=== PATIENT | female | born 1940 | race Caucasian/White ===

== ENCOUNTER 2016-08-25 06:14 | Day surgery (SDC) | payer MEDICARE, OTHER ==
--- NOTE | ~2016-08-25 | EGD ---
EGD REPORT [facility] [address] [address] NAME: SUE ROCA : [birth year] STATUS : [place] [facility] [place] PAT#: [id number] AGE: 76 ADM/REG DATE : 08/25/16 MR#: [id number] REPORT SERV DATE: 08/25/16 DICTATED BY: LENIN PERRY DATE: 08/25/16 REPORT STATUS : Draft TRANSCRIBED BY: [employer] DATE: 08/25/16 [facility] Patient Name: Sue Roca Date of : 1940 Attending MD: LENIN PERRY, Procedure Date No Time: 08/25/2016 Procedure: Colonoscopy Indications: Surveillance: History of piecemeal removal adenoma on last colonoscopy (< 3 yrs) Referring MD: DINAH CHISHOLM MD Medicines: Monitored Anesthesia Care Complications: No immediate complications. Estimated blood loss: None. Procedure: Pre-Anesthesia Assessment: - ASA Grade Assessment: III - A patient with severe systemic disease. After I obtained informed consent, the scope was passed under direct vision. Throughout the procedure, the patient's blood pressure, pulse, and oxygen saturations were monitored continuously. The PCF [id number] was introduced through the anus and advanced to the cecum, identified by appendiceal orifice and ileocecal valve. The colonoscopy was performed without difficulty. The patient tolerated the procedure well. The quality of the bowel preparation was good. Findings: The perianal and digital rectal examinations were normal. A tattoo was seen at the hepatic flexure. The tattoo site appeared normal. Internal hemorrhoids were found during retroflexion and were Grade I (internal hemorrhoids that do not prolapse). The exam was otherwise without abnormality on direct and retroflexion views. Impression: - A tattoo was seen at the hepatic flexure. The tattoo site appeared normal. - Internal hemorrhoids. - The examination was otherwise normal on direct and retroflexion views. Recommendation: - Patient has a contact number available for emergencies. The signs and symptoms of potential delayed complications were discussed with the patient. Return to normal activities tomorrow. Written discharge instructions were provided to the patient. EGD REPORT [address] [address] NAME: SUE ROCA : [birth year] STATUS : [place] [facility] [place] PAT#: [id number] AGE: 76 ADM/REG DATE : 08/25/16 MR#: [id number] REPORT SERV DATE: 08/25/16 DICTATED BY: LENIN PERRY DATE: 08/25/16 REPORT STATUS : Draft TRANSCRIBED BY: [employer] DATE: 08/25/16 - Return to previous diet. - Continue present medications. - Repeat colonoscopy in 5 years for surveillance. Procedure Code(s): --- Professional --- 49016, Colonoscopy, flexible, proximal to splenic flexure; diagnostic, with or without collection of specimen(s) by brushing or washing, with or without colon decompression (separate procedure) Diagnosis Code(s): --- Professional --- K64.0, First degree hemorrhoids Z86.010, Personal history of colonic polyps CPT copyright 2013 [employer]. All rights reserved. The codes documented in this report are preliminary and upon project control manager review may be revised to meet current compliance requirements. LENIN PERRY, 08/25/2016 8:07 AM Number of Addenda: 0 Note Initiated On: 08/25/2016 7:34 AM Scope Withdrawal Time 0 hours 6 minutes 15 seconds [address] [id number]
[~2016-08-25 06:14] MED LIST: ASAB PO; COZAAR100 MG PO; FERROUS SULF325 M1 PO; GLUCPH PO; LOP50 PO; MULTI-VIT HP PO; NORV5 PO
== END 2016-08-25 23:59 | disposition home health service (06) ==
LOC: DMU 06:14
PROVIDERS: Internal Medicine Gastroenterology
PROC: 0DJD8ZZ Inspection of Lower Intestinal Tract, Via Natural or Artificial Opening Endoscopic (ICD-10-PCS; principal; 2016-08-25 07:30)
DX: Z12.11 Encounter for screening for malignant neoplasm of colon (principal); K64.0 First degree hemorrhoids; E11.9 Type 2 diabetes mellitus without complications; I10 Essential (primary) hypertension; M19.90 Unspecified osteoarthritis, unspecified site; I73.9 Peripheral vascular disease, unspecified; D64.9 Anemia, unspecified; Z86.010 Personal history of colon polyps; Z88.8 Allergy status to other drugs, medicaments and biological substances; F17.210 Nicotine dependence, cigarettes, uncomplicated; Z89.519 Acquired absence of unspecified leg below knee; Z90.710 Acquired absence of both cervix and uterus; Z98.890 Other specified postprocedural states
CPT/HCPCS: 82962